=== PATIENT | female | born 1995 | race Two or more races ===

== ENCOUNTER 2020-01-22 20:00 | Emergency (ER) | payer SELFPAY ==
[~2020-01-22] VITALS: Ht 167.6 cm; Wt 70.8 kg
[2020-01-22 20:30] LABS: BILIRUBIN,URINE NEGATIVE (NEG); CLARITY,URINE CLOUDY; COLOR,URINE YELLOW; NITRITE,URINE NEGATIVE (NEG); PH,URINE 7.5 (<5.0-8.0); PROTEIN,URINE NEGATIVE (NEG-TRACE)
[2020-01-22 20:35] LABS: BARBITURATES NEG (NEG); BENZODIAZEPINES NEG (NEG); CANNABINOIDS NEG (NEG); COCAINE NEG (NEG); METHADONE NEG (NEG); OPIATES NEG (NEG); PHENCYCLIDINE NEG (NEG)
[2020-01-22 20:37] LABS: AMPHETAMINE/METHAMPHETAMINE NEG (NEG)
[2020-01-22 20:38] LABS: RBC,URINE RARE /HPF (0-2); WBC,URINE RARE /HPF (0-4)
[2020-01-22 20:39] LABS: AMORPHOUS SEDIMENT,UR PRESENT /HPF; BACTERIA,URINE FEW /HPF (0-FEW); SQUAMOUS EPITHELIAL CELL,UR FEW /LPF
--- NOTE | 2020-01-22 20:45 | PHYS DOC ---
General Adult EDM: Chief Complaint: ABDOMINAL PAIN IN HPI: HPI: Patient is a 24 year old female 2 para 1 currently 6 weeks presenting to the ED today complaining of lower abdominal pain/pelvic pain, symptoms began 3 days ago. Patient denies any nausea, vomiting. She states she has not followed up with an [employer] yet. Denies anything specifically exacerbating or relieving her pain. Review of Systems: Review of Systems: Constitutional: Denies fever or chills. [] Eyes: Denies change in visual acuity. [] HENT: Denies nasal congestion or sore throat. [] Respiratory: Denies cough or shortness of breath. [] Cardiovascular: Denies chest pain or edema. [] GI: Reports pelvic pain, denies nausea, vomiting, bloody stools or diarrhea. [] : Denies dysuria. [] Musculoskeletal: Denies back pain or joint pain. [] Integument: Denies rash. [] Neurologic: Denies headache, focal weakness or sensory changes. [] Psychiatric: Denies depression or anxiety. [] Heart Score: Risk Factors: Risk Factors: DM, Current or recent (<one month) smoker, HTN, HLP, family history of CAD, obesity. Risk Scores: Score 0 - 3: 2.5% MACE over next 6 weeks - Discharge Home Score 4 - 6: 20.3% MACE over next 6 weeks - Admit for Clinical Observation Score 7 - 10: 72.7% MACE over next 6 weeks - Early Invasive Strategies Physical Exam: PE: Constitutional: Well developed, well nourished, no acute distress, non-toxic appearance. [] HENT: Normocephalic, atraumatic, bilateral external ears normal, oropharynx moist, no oral exudates, nose normal. [] Eyes: PERRLA, EOMI, conjunctiva normal, no discharge. [] Neck: Normal range of motion, no tenderness, supple, no stridor. [] Cardiovascular:Heart rate regular rhythm, no murmur [] Lungs & Thorax: Bilateral breath sounds clear to auscultation [] Abdomen: Bowel sounds normal, soft, no tenderness, no masses, no pulsatile masses. [] Pelvic exam External pelvic appears normal, cervix is visualized, closed, no CMT, no adnexal tenderness Skin: Warm, dry, no erythema, no rash. [] Back: No tenderness, no CVA tenderness. [] Extremities: No tenderness, no cyanosis, no clubbing, ROM intact, no edema. [] Neurologic: Alert and oriented X 3, normal motor function, normal sensory function, no focal deficits noted. [] Psychologic: Affect normal, judgement normal, mood normal. [] Current Patient Data: Labs: Laboratory Tests Test 01/22/20 20:03 01/22/20 20:13 Urine Collection Type Unknown Urine Color Yellow Urine Clarity Cloudy Urine pH 7.5 (<5.0-8.0) Urine Specific Ballard 1.015 (1.000-1.030) Urine Protein Negative mg/dL (NEG-TRACE) Urine Glucose (UA) Negative mg/dL (NEG) Urine Ketones (Stick) Negative mg/dL (NEG) Urine Blood Negative (NEG) Urine Nitrite Negative (NEG) Urine Bilirubin Negative (NEG) Urine Urobilinogen Dipstick 1.0 mg/dL (0.2 mg/dL) Urine Leukocyte Esterase Negative (NEG) Urine RBC Rare /HPF (0-2) Urine WBC Rare /HPF (0-4) Urine Squamous Epithelial Cells Few /LPF Urine Amorphous Sediment Present /HPF Urine Bacteria Few /HPF (0-FEW) Urine Opiates Screen Neg (NEG) Urine Methadone Screen Neg (NEG) Urine Barbiturates Neg (NEG) Urine Phencyclidine Screen Neg (NEG) Urine Amphetamine/Methamphetamine Neg (NEG) Urine Benzodiazepines Screen Neg (NEG) Urine Cocaine Screen Neg (NEG) Urine Cannabinoids Screen Neg (NEG) Urine Ethyl Alcohol Neg (NEG) POC Urine HCG, Qualitative Hcg positive (Negative) EKG: EKG: [] Radiology/Procedures: Radiology/Procedures: [] Course & Med Decision Making: Course & Med Decision Making Pertinent Labs and Imaging studies reviewed. (See chart for details) This is a 24-year-old female patient presenting to the ED today complaining of pelvic pain in . She is a 2 para 1 currently 6 weeks . Symptoms began 3 days ago. Positive urine hCG, beta-hCG pending, CBC, CMP no acute findings. Wet prep is negative. Urine analysis negative for infection. Preliminary OB ultrasound noted for IUP 6w 4 days HR 150, and a corpus luteum cyst on the left ovary. Patient is running an incidental temperature of 100.2. COVID19 test pending Patient was discharged to home on quarantine orders. Provided OB for follow-up. Tylenol for pain. Dragon Disclaimer: Dragon Disclaimer: This electronic medical record was generated, in whole or in part, using a voice recognition dictation system. Departure Departure Impression: Primary Impression: Abdominal pain in Qualified Codes: O26.891 - Other specified related conditions, first trimester; R10.9 - Unspecified abdominal pain Additional Impressions: Fever Qualified Codes: R50.9 - Fever, unspecified Person under investigation for COVID-19 Referrals: RYAN KUNZ MD follow up in 1-2 weeks Patient Instructions: Abdominal Pain During , Fever, Adult Additional Instructions: You were seen for abdominal pain and noted to a slight fever. Please quarantine yourself for 14 days or until your COVID 19 test comes back negative. You can take Tylenol as needed for pain. Your ultrasound showed just 6 weeks 4 days pre gnant. Follow-up with your own [employer] with the provided [employer]. RANDY ANDREWS TRAIN ATTENDANT January 22, 2020 20:45
[2020-01-22] MEDS ORDERED: ACETAMINOPHEN 500 MG TABLET PO ONE (21:00)
[2020-01-22] MEDS ORDERED: IV NORMAL SALINE 1000ML BAG 1,000 ML IV ONE (21:15)
[2020-01-22 21:21] LABS: BASO % 0 % (0-3); EOS # 0.1 x10^3/uL (0.0-0.7); EOS % 1 % (0-3); HEMATOCRIT 38.7 % (36.0-47.0); HEMOGLOBIN 13.5 g/dL (12.0-15.5); LYMPH # 0.7 x10^3/uL (1.0-4.8); LYMPH % 7 % (24-48); MEAN CORPUSCULAR HEMOGLOBIN 31 pg (25-35); MEAN CORPUSCULAR HGB CONC 35 g/dL (31-37); MEAN CORPUSCULAR VOLUME 88 fL (79-100); MONO % 11 % (0-9); NEUT # 7.5 x10^3/uL (1.8-7.7); NEUT % 81 % (31-73); PLATELET COUNT 309 x10^3/uL (140-400); RED BLOOD COUNT 4.41 x10^6/uL (3.50-5.40); RED CELL DISTRIBUTION WIDTH 13.3 % (11.5-14.5); WHITE BLOOD COUNT 9.3 x10^3/uL (4.0-11.0)
[2020-01-22 21:32] LABS: CALCIUM 9.1 mg/dL (8.5-10.1); CREATININE 0.9 mg/dL (0.6-1.0); GFR 76.3; POTASSIUM 3.4 mmol/L (3.5-5.1)
[2020-01-22 21:38] LABS: ALBUMIN 3.6 g/dL (3.4-5.0); TOTAL BILIRUBIN 0.6 mg/dL (0.2-1.0); TOTAL PROTEIN 7.2 g/dL (6.4-8.2)
[2020-01-22 22:09] VITALS: BP 102/54
--- NOTE | 2020-01-22 22:34 | RAD ---
OB <14 WKS W/TV Clinical Indication: Reason: abd pain in / Spl. Instructions: / History: Comparison: None. TECHNIQUE: Real-time ultrasound imaging of the pelvis using transabdominal and transvaginal window is performed. Findings: Uterus measures 11.3 x 7.9 x 5.9 cm. The cervix length is approximately 4.6 cm measured transvaginally. There is intrauterine gestational sac. The contour is smooth. No perigestational hemorrhage is identified. Internally a yolk sac and pole are identified. Galien-rump length 0.7 cm, 6 weeks and 4 days. EDC ultrasound is September 12, 2020. Estimated heart rate is 150 bpm. There is a sliver of cul-de-sac free fluid. The maternal ovaries demonstrate normal blood flow. The ovaries are similar in size. There is a 1.5 cm probable left corpus luteum. IMPRESSION: 1. Single live intrauterine gestation, estimated sonographic gestational age 6 weeks and 4 days. 2. Probable small left corpus luteum. 3. Trace cul-de-sac free fluid. Electronically signed by: Vamsi Perez MD (01/22/2020 10:31 PM) [facility]
[2020-01-25 19:09] LABS: GC PROBE Negative (Negative)
== END 2020-01-22 22:15 | disposition home or self-care (01) ==
LOC: ER 20:00
DX: O26.891 Other specified pregnancy related conditions, first trimester (principal); U07.1 COVID-19; R10.2 Pelvic and perineal pain; R50.9 Fever, unspecified; Z3A.01 Less than 8 weeks gestation of pregnancy
CPT/HCPCS: 36415; 76801; 76817; 80053; 80307; 81001; 81025; 84702; 85025; 87491; 87591; 99284; J7030; Q0111; U0003-CS

== ENCOUNTER 2020-08-24 19:20 | Observation (INO) | payer SELFPAY ==
[2020-08-24] MEDS ORDERED: IV RINGERS,LACTATED 1000ML 1,000 ML IV PRN (19:30)
[2020-08-24 20:01] LABS: BILIRUBIN,URINE NEGATIVE (NEG); CLARITY,URINE CLEAR; COLOR,URINE YELLOW; NITRITE,URINE NEGATIVE (NEG); PROTEIN,URINE NEGATIVE (NEG-TRACE); UROBILINOGEN,URINE 0.2 mg/dL (0.2 mg/dL)
[2020-08-24 20:08] LABS: BARBITURATES NEG (NEG); BENZODIAZEPINES NEG (NEG); CANNABINOIDS NEG (NEG); COCAINE NEG (NEG); METHADONE NEG (NEG); OPIATES NEG (NEG); PHENCYCLIDINE NEG (NEG)
[2020-08-24 20:10] LABS: AMPHETAMINE/METHAMPHETAMINE NEG (NEG)
[2020-08-24 20:12] LABS: BACTERIA,URINE MODERATE /HPF (0-FEW)
[2020-08-24 20:13] LABS: RBC,URINE 0 /HPF (0-2)
== END 2020-08-24 21:40 | disposition home or self-care (01) ==
LOC: 3 SO LND 19:20
PROVIDERS: ADMIT Obstetrics & Gynecology; ATTEND Obstetrics & Gynecology
DX: O62.9 Abnormality of forces of labor, unspecified (principal); Z3A.37 37 weeks gestation of pregnancy; Z79.899 Other long term (current) drug therapy
CPT/HCPCS: 59025; 80307; 81001; 87086; G0378; G0379

== ENCOUNTER 2020-09-04 20:06 | Inpatient (IN) | payer MEDICAID ==
[~2020-09-04] VITALS: Ht 167.6 cm; Wt 85.7 kg
[2020-09-04] MEDS ORDERED: ACETAMINOPHEN 325 MG TABLET. PO PRN ×2 (20:15→21:30)
[2020-09-04] MEDS ORDERED: IV RINGERS,LACTATED 1000ML 1,000 ML IV SCH (20:15)
[2020-09-04] MEDS ORDERED: ONDANSETRON PF 4 MG/2 ML VIAL. IVP PRN (21:30)
[2020-09-04] MEDS ORDERED: CITRIC ACID/SODIUM CITRATE 30 ML SOLUTION. PO PRN (21:30)
[2020-09-04] MEDS ORDERED: 0.9 % SODIUM CHLORIDE 10 ML DISP.SYRIN. IV PRN (21:30)
[2020-09-04] MEDS ORDERED: BUTORPHANOL 2 MG/ML VIAL. IVP PRN (21:30)
[2020-09-04] MEDS ORDERED: TERBUTALINE 1 MG/ML VIAL. SQ PRN (21:30)
[2020-09-04] MEDS ORDERED: PENICILLIN G K 5,000,000 UNIT in IV DEXTROSE 5% 100ML 100 ML IV ONE (21:30)
[2020-09-04] MEDS ORDERED: fentaNYL PF VIAL 100 MCG/2 ML VIAL IVP PRN (21:30)
[2020-09-04] MEDS ORDERED: IBUPROFEN 400 MG TABLET. PO PRN (21:30)
[2020-09-04] MEDS ORDERED: LIDOCAINE 1% PF 30 ML VIAL. INJ PRN (21:30)
[2020-09-04] MEDS ORDERED: OXYTOCIN 30 UNIT/500 ML PREMIX 500 ML IV PRN ×2 (21:30)
[2020-09-04 21:34] LABS: BASO % 0 % (0-3); EOS # 0.1 x10^3/uL (0.0-0.7); EOS % 1 % (0-3); HEMATOCRIT 38.1 % (36.0-47.0); HEMOGLOBIN 12.9 g/dL (12.0-15.5); LYMPH # 2.7 x10^3/uL (1.0-4.8); LYMPH % 27 % (24-48); MEAN CORPUSCULAR HEMOGLOBIN 30 pg (25-35); MEAN CORPUSCULAR HGB CONC 34 g/dL (31-37); MEAN CORPUSCULAR VOLUME 89 fL (79-100); MONO # 0.8 x10^3/uL (0.0-1.1); MONO % 8 % (0-9); NEUT # 6.3 x10^3/uL (1.8-7.7); NEUT % 64 % (31-73); PLATELET COUNT 238 x10^3/uL (140-400); WHITE BLOOD COUNT 9.9 x10^3/uL (4.0-11.0)
[2020-09-04] MEDS: IV RINGERS,LACTATED 1000ML 1,000 ML IV SCH (21:35)
[2020-09-04] MEDS ORDERED: ACETAMINOPHEN 500 MG TABLET PO PRN (21:45)
[2020-09-04 22:11] VITALS: BP 118/67
[2020-09-05] MEDS: PENICILLIN G K 2,500,000 UNIT in IV DEXTROSE 5% 50 ML IV SCH ×2 (01:26→05:28)
[2020-09-05] MEDS: IV RINGERS,LACTATED 1000ML 1,000 ML IV SCH (01:27)
--- NOTE | 2020-09-05 06:42 | PDOC1 ---
OB - History Hx of Present Care: Good Care Ultrasounds: Normal mid trimester US Obstetrical Complications: None Medical Complications: None Past Family/Social History * Past Medical, Surgical, Family and Obstetric Histories reviewed from chart. Rubella: Immune RPR/VDRL: Negative GBS Status: Unknown HBsAG: Negative OB - Chief Complaint & HPI Date of Admission: Date of Admission: Sep 04, 2020 at 20:06 Chief Complaint/History : 2 Para: 1 EGA: 39 Reason for admission: active labor Admission Nurse Assessment Rev: Yes OB - Admission Exam Physical Exam Vitals: VS - Last 72 Hours, by Label Date Time Temp Pulse Resp B/P (MAP) Pulse Ox O2 Delivery O2 Flow Rate FiO2 09/05/20 04:40 18 09/05/20 02:59 18 09/04/20 22:11 98.3 84 18 118/67 (84) Room Air 98.3 HEENT: Normal Heart: Regular Rate Lungs: Clear Abdomen: Gravid, Non tender, Soft Extremities: Edema Reflexes: Normal Cervical Dilatation: 2cm Effacement: 75% Station: -3 Membranes: Ruptured Amniotic Fluid: Clear Heart Rate: Normal Accelerations: Accelerations Present Decelerations: No decelerations Contractions on Admission: 6-10 Minutes Apart Intensity: Mild Text A: 39 wks IUP SROM GBS unknown P: Admit labor management. Start Pen G prophylaxis for GBS unknown status. Start Pitocin augmentation. KARL OGLESBY Jr, MD Sep 05, 2020 06:42
[2020-09-05] MEDS ORDERED: MAGNESIUM HYDROXIDE 2,400 MG/30 ML ORAL.SUSP. PO PRN (06:45)
[2020-09-05] MEDS ORDERED: DOCUSATE SODIUM 100 MG CAPSULE. PO PRN (06:45)
[2020-09-05] MEDS ORDERED: OXYTOCIN 30 UNIT/500 ML PREMIX 500 ML IV PRN (06:45)
[2020-09-05] MEDS ORDERED: SIMETHICONE 80 MG TAB.CHEW PO PRN (06:45)
[2020-09-05] MEDS ORDERED: HYDROCORTISONE 1% TOPICAL OINTMENT 30GM TUBE. TP PRN (06:45)
[2020-09-05] MEDS ORDERED: 0.9 % SODIUM CHLORIDE 10 ML DISP.SYRIN. IV PRN (06:45)
[2020-09-05] MEDS ORDERED: ZOLPIDEM 5 MG TABLET. PO PRN (06:45)
[2020-09-05] MEDS ORDERED: BENZOCAINE 20% TOPICAL AEROSOL SPRAY 57GM CAN. TP PRN (06:45)
[2020-09-05] MEDS ORDERED: TDaP (Adacel) per PROTOCOL. MC PRN (06:45)
[2020-09-05] MEDS ORDERED: ACETAMINOPHEN 325 MG TABLET. PO PRN (06:45)
[2020-09-05] MEDS ORDERED: oxyCODONE/APAP 5/325 1 TAB TABLET PO PRN (06:45)
[2020-09-05] MEDS ORDERED: diphenhydrAMINE HCL 25 MG CAPSULE PO PRN (06:45)
[2020-09-05] MEDS ORDERED: PHENYLEPH/MINERAL OIL/PETROLAT RECTAL OINTMENT TUBE. RC PRN (06:45)
[2020-09-05] MEDS ORDERED: MMR per PROTOCOL. MC PRN (06:45)
[2020-09-05] MEDS ORDERED: MAG HYDROX/ALUMINUM HYD/SIMETH 30 ML ORAL.SUSP PO PRN (06:45)
[2020-09-05] MEDS ORDERED: IBUPROFEN 400 MG TABLET. PO PRN (06:45)
--- NOTE | 2020-09-05 06:45 | PDOC ---
VAGINAL DELIVERY DATE DATE: 09/05/20 TIME: 06:43 : 2 Para: 2 EGA: 39 VAGINAL DELIVERY: VTX VACCUM ASSISTED: No PLACENTA: Spontaneous 8/9 SEX: Male WEIGHT Weight [ 7 lbs. 11 oz ] Nuchal Cord: Yes, Times 1 Amniotic Fluid: Clear PAIN: Natural EPISIOTOMY: No EXTENSION: Yes (2nd degree midline laceration) REPAIRED WITH 2-0 vicryl EBL 300 ml COMPLICATIONS none CONDITION pt. stable Signs of Intrauterine Infectio: None Shoulder Dystocia: No KARL OGLESBY Jr, MD Sep 05, 2020 06:45
[2020-09-05 08:55] VITALS: BP 119/64
[2020-09-05] MEDS: MULTIVITAMIN with MINERAL TABLET. PO SCH (09:00)
[2020-09-05 09:25] VITALS: BP 116/64
[2020-09-05 13:30] VITALS: BP 109/71
[2020-09-05 18:25] VITALS: BP 117/71
[2020-09-05] MEDS ORDERED: METOCLOPRAMIDE HCL 10 MG/2 ML VIAL. IVP PRN (20:00)
[2020-09-05 22:00] VITALS: BP 100/49
[2020-09-06 01:19] VITALS: BP 106/60
[2020-09-06 05:25] VITALS: BP 100/49
--- NOTE | 2020-09-06 07:06 | PDOC ---
OB Progress Note Date of Service 09/06/20 Time of Evaluation 0705 Notes Pt. feeling well. No complaints. Lab Laboratory Tests Test 09/04/20 21:10 09/04/20 21:25 White Blood Count 9.9 x10^3/uL (4.0-11.0) Red Blood Count 4.30 x10^6/uL (3.50-5.40) Hemoglobin 12.9 g/dL (12.0-15.5) Hematocrit 38.1 % (36.0-47.0) Mean Corpuscular Volume 89 fL (79-100) Mean Corpuscular Hemoglobin 30 pg (25-35) Mean Corpuscular Hemoglobin Concent 34 g/dL (31-37) Red Cell Distribution Width 15.0 % (11.5-14.5) Platelet Count 238 x10^3/uL (140-400) Neutrophils (%) (Auto) 64 % (31-73) Lymphocytes (%) (Auto) 27 % (24-48) Monocytes (%) (Auto) 8 % (0-9) Eosinophils (%) (Auto) 1 % (0-3) Basophils (%) (Auto) 0 % (0-3) Neutrophils # (Auto) 6.3 x10^3/uL (1.8-7.7) Lymphocytes # (Auto) 2.7 x10^3/uL (1.0-4.8) Monocytes # (Auto) 0.8 x10^3/uL (0.0-1.1) Eosinophils # (Auto) 0.1 x10^3/uL (0.0-0.7) Basophils # (Auto) 0.0 x10^3/uL (0.0-0.2) Treponema pallidum Antibody Nonreactive (Nonreactive) Coronavirus (PCR) Not detected (Not Detected) SARS-CoV-2 Antigen (Rapid) Negative (NEGATIVE) Medications Current Medications Ringer's Solution 1,000 ml @ 125 mls/hr Q8H IV ; Start 09/04/20 at 20:15; Stop 09/06/20 at 04:38; Status DC Acetaminophen (Tylenol) 650 mg PRN Q6HRS PRN PO PAIN, TEMP > 100.5'F; Start 09/04/20 at 20:15 Sodium Chloride (Normal Saline Flush) 3 ml QSHIFT PRN IV AFTER MEDS AND BLOOD DRAWS; Start 09/04/20 at 21:30; Stop 09/06/20 at 04:38; Status DC Ringer's Solution 1,000 ml @ 125 mls/hr Q8H IV Last administered on 09/05/20at 01:27; Start 09/04/20 at 21:30; Stop 09/06/20 at 04:38; Status DC Butorphanol Tartrate (Stadol) 2 mg PRN Q1HR PRN IVP Severe labor pain Last administered on 09/05/20at 02:59; Start 09/04/20 at 21:30; Stop 09/06/20 at 04:38; Status DC Fentanyl Citrate (Fentanyl 2ml Vial) 100 mcg PRN Q30MIN PRN IVP Severe pain; Start 09/04/20 at 21:30 Acetaminophen (Tylenol) 1,000 mg PRN Q6HRS PRN PO MILD PAIN / TEMP > 100.3'F; Start 09/04/20 at 21:30; Stop 09/04/20 at 21:34; Status DC Ondansetron HCl (Zofran) 4 mg PRN Q4HRS PRN IVP NAUSEA/VOMITING; Start 09/04/20 at 21:30 Citric Acid/ Sodium Citrate (Bicitra) 30 ml 1X PRN PRN PO DYSPEPSIA; Start 09/04/20 at 21:30; Stop 09/05/20 at 21:29; Status DC Terbutaline Sulfate (Brethine) 0.25 mg 1X PRN PRN SQ SEE COMMENTS; Start 09/04/20 at 21:30; Stop 09/05/20 at 21:29; Status DC Lidocaine HCl (Xylocaine 1% Pf 30ml Vial) 30 ml 1X PRN PRN INJ SEE COMMENTS Last administered on 09/05/20at 06:33; Start 09/04/20 at 21:30; Stop 09/06/20 at 04:38; Status DC Oxytocin 500 ml @ 0 mls/hr CONT PRN IV SEE I/O RECORD Last administered on 09/04/20at 22:44; Start 09/04/20 at 21:30; Stop 09/06/20 at 04:38; Status DC Oxytocin 500 ml @ 0 mls/hr CONT PRN PRN IV Post delivery bleeding; Start 09/04/20 at 21:30; Stop 09/06/20 at 04:38; Status DC Ibuprofen (Motrin) 800 mg PRN Q6HRS PRN PO PAIN Last administered on 09/05/20at 07:49; Start 09/04/20 at 21:30; Stop 09/06/20 at 04:38; Status DC Penicillin G Potassium 1567815 unit/Dextrose 100 ml @ 100 mls/hr 1X ONCE IV Last administered on 09/04/20at 21:34; Start 09/04/20 at 21:30; Stop 09/04/20 at 22:29; Status DC Penicillin G Potassium 1536921 unit/Dextrose 50 ml @ 100 mls/hr Q4H IV Last administered on 09/05/20at 05:28; Start 09/05/20 at 01:30; Stop 09/06/20 at 04:38; Status DC Acetaminophen (Tylenol) 1,000 mg PRN Q6HRS PRN PO MILD PAIN / TEMP > 100.3'F; Start 09/04/20 at 21:45 Sodium Chloride (Normal Saline Flush) 10 ml QSHIFT PRN IV AFTER MEDS AND BLOOD DRAWS; Start 09/05/20 at 06:45 Oxytocin 500 ml @ 62.5 mls/hr CONT PRN IV SEE I/O RECORD; Start 09/05/20 at 06:45; Stop 09/05/20 at 14:44; Status DC Acetaminophen (Tylenol) 650 mg PRN Q6HRS PRN PO MILD PAIN / TEMP > 100.3'F; Start 09/05/20 at 06:45 Ibuprofen (Motrin) 800 mg PRN Q8HRS PRN PO INFLAMMATION/PAIN PREVENTION; Start 09/05/20 at 06:45 Docusate Sodium (Colace) 100 mg PRN BID PRN PO CONSTIPATION; Start 09/05/20 at 06:45 Magnesium Hydroxide (Milk Of Magnesia) 2,400 mg PRN DAILY PRN PO CONSTIPATION; Start 09/05/20 at 06:45 Al Hydroxide/Mg Hydroxide (Mylanta Plus Xs) 30 ml PRN Q4HRS PRN PO HEARTBURN / GAS; Start 09/05/20 at 06:45 Simethicone (Gas-X) 80 mg PRN AFTMEALHC PRN PO GAS / BLOATING; Start 09/05/20 at 06:45 Diphenhydramine HCl (Benadryl) 25 mg PRN Q6HRS PRN PO ITCHING; Start 09/05/20 at 06:45 Benzocaine (Americaine) 1 spray PRN QID PRN TP TOPICAL PAIN Last administered on 09/05/20at 07:50; Start 09/05/20 at 06:45 Phenyleph/Shark Oil/Min Oil/Petrol (Preparation H) 1 meka PRN QID PRN RC RECTAL PAIN; Start 09/05/20 at 06:45 Hydrocortisone (Cortaid) 1 meka PRN QID PRN TP PERINEAL PAIN; Start 09/05/20 at 06:45 Ferrous Sulfate (Feosol) 325 mg BIDWMEALS PO ; Start 09/06/20 at 08:00 Zolpidem Tartrate (Ambien) 5 mg PRN QHS PRN PO INSOMNIA, MAY REPEAT X1; Start 09/05/20 at 06:45 Info (Do NOT chart on this placeholder) 1 ea 1X PRN PRN MC SEE COMMENTS; Start 09/05/20 at 06:45 Info (Do NOT chart on this placeholder) 1 ea 1X PRN PRN MC SEE COMMENTS; Start 09/05/20 at 06:45 Oxycodone/ Acetaminophen (Percocet 5/325) 2 tab PRN Q4HRS PRN PO MODERATE PAIN, SEVERE PAIN; Start 09/05/20 at 06:45 Multivitamins (Thera M Plus) 1 tab DAILY PO ; Start 09/05/20 at 09:00 Metoclopramide HCl (Reglan Vial) 10 mg PRN Q6HRS PRN IVP NAUSEA/VOMITING; Start 09/05/20 at 20:00; Status Cancel Exam Abd: soft, mild tenderness, fundus firm Assessment PPD#1 s/p Plan of Care: Continue current Tx, KARL Gastelum Jr, MD Sep 06, 2020 07:06
[2020-09-06] MEDS ORDERED: FERROUS SULFATE 325 MG TABLET. PO SCH (08:00)
[2020-09-06 08:14] LABS: BASO # 0.1 x10^3/uL (0.0-0.2); BASO % 1 % (0-3); EOS # 0.2 x10^3/uL (0.0-0.7); EOS % 2 % (0-3); HEMATOCRIT 33.2 % (36.0-47.0); LYMPH # 3.9 x10^3/uL (1.0-4.8); LYMPH % 28 % (24-48); MEAN CORPUSCULAR HEMOGLOBIN 30 pg (25-35); MEAN CORPUSCULAR HGB CONC 33 g/dL (31-37); MEAN CORPUSCULAR VOLUME 90 fL (79-100); MONO # 0.9 x10^3/uL (0.0-1.1); MONO % 7 % (0-9); NEUT % 64 % (31-73); PLATELET COUNT 199 x10^3/uL (140-400); RED BLOOD COUNT 3.71 x10^6/uL (3.50-5.40); RED CELL DISTRIBUTION WIDTH 14.8 % (11.5-14.5); WHITE BLOOD COUNT 14.1 x10^3/uL (4.0-11.0)
[2020-09-06] MEDS: MULTIVITAMIN with MINERAL TABLET. PO SCH (08:24)
[2020-09-06 09:35] VITALS: BP 109/67
[2020-09-06 18:30] VITALS: BP 126/77
--- NOTE | 2020-09-06 19:12 | NUR ---
Discharge and follow up instructions reviewed and given to pt. Pt verbalized understanding and denied any questions at this time. Pt ambulated out of the hospital with Mary DUNN by her side.
--- NOTE | 2020-09-13 09:12 | PATHOLOGY ---
[facility] Accession Number: [id number] . 01 Material submitted: . placenta - PLACENTA AND CORD . 02 Diagnosis: Placenta, vaginal delivery: - Mature nash placenta weighing 480 grams (at approximately the 50th percentile for a 39-week gestation). - Three vessel umbilical cord with eccentric insertion into the chorionic plate. - Meconium staining of membranes. - Recent retromembranous hematoma. - Chronic lymphoplasmacytic deciduitis. - Laminar decidual necrosis. - Mixed inflammatory infiltrate, with eosinophils, lymphocytes, and macrophages, consistent with eosinophilic/T-cell chorionic vascu- litis. - Acute subchorioamnionitis. - Chronic villitis, with focally associated clustered fibrin encased chorionic villi. - Increased number of nucleated red blood cells within vascular spaces. (MLK:areli; 09/09/2020) QMS 09/12/2020 1201 Local . 02 Electronically signed: . Rigoberto Moore MD, Pathologist NPI- [id number] . 01 Gross description: . The specimen is received in formalin labeled "Gallegjosegutierreliam, Magdahazelain, placenta" and consists of a circular nash placenta measuring 16.5 x 15.9 x 2.4 cm and weighing 480 g after removal of membranes and umbilical cord. The membranes are slimy pink-lindsay and translucent with scattered adherent clot. The surface is bluegray and well vascularized with an eccentrically inserted 3 vessel umbilical cord, 2.4 cm from edge. The cord measures 54.2 cm in length and ranging from 0.8-1.4 cm in diameter with increased twists but no true knots. The maternal surface shows complete and intact cotyledons with minimal adherent clot and minimal calcifications. Sectioning reveals a maroon-red and spongy parenchyma with no gross lesions. Tub Attendant sections are submitted as follows: . A1: Surface vessels A2: Umbilical cord and membrane rolls A3-A4: Parenchyma (A4 full-thickness) (SDY; 09/06/2020) SYU/SYU 09/06/2020 1720 Local . 02 Pathologist provided ICD-10: Z3A.39, O77.0, O41.1230 . 02 CPT . 919429 Specimen Comment: A courtesy copy of this report has been sent to [phone] Specimen Comment: Report sent to Specimen Comment: A duplicate report has been generated due to demographic updates. Performed at: 01 [facility] [address] [id number] MD Chandana Malin MD Phone: [phone] Performed at: 02 [facility] [id number] [address] [id number] MD Christian Trivedi MD Phone: [phone]
== END 2020-09-06 19:12 | disposition home or self-care (01) | DRG 807 ==
LOC: OBSVTOIN 20:06 → 3 SO LND 20:06 → 3 NORTH 09-05 13:30
PROVIDERS: ADMIT Obstetrics & Gynecology; ATTEND Obstetrics & Gynecology
PROC: 10E0XZZ Delivery of Products of Conception, External Approach (ICD-10-PCS; principal; 2020-09-05)
PROC: 0KQM0ZZ Repair Perineum Muscle, Open Approach (ICD-10-PCS; 2020-09-05)
DX: O69.81X0 Labor and delivery complicated by cord around neck, without compression, not applicable or unspecified (principal); Z37.0 Single live birth; O70.1 Second degree perineal laceration during delivery; Z3A.39 39 weeks gestation of pregnancy; Z20.822 Contact with and (suspected) exposure to COVID-19
CPT/HCPCS: 36415; 85025; 86592; 86850; 86900; 86901; 87426; 88307; J0595; J2540; J2590; J3490; J7060; J7120; U0003; G0378